=== PATIENT | male | born 1980 | race Hispanic/Latino ===

== ENCOUNTER 2018-05-28 21:12 | Emergency (ER) | payer OTHER, SELFPAY ==
[2018-05-28 21:19] VITALS: BP 130/84; PULSE 67; RESP 15; TEMP 36.9; O2SAT 100; BMI 26.9
--- NOTE | 2018-05-28 21:24 | ED.LOWEXIN ---
HPI - Extremity Injury (Lower) <ERICA LozaP- - Last Filed: 05/28/18 22:51> General Chief Complaint: Extremity Injury, Lower Stated Complaint: Foot injury Time Seen by Provider: 05/28/18 21:15 Source: patient and EMS Mode of arrival: EMS Limitations: no limitations History of Present Illness HPI Narrative: Patient presents with chief complaint of right foot pain. Patient states he has pain on the outside of his right foot after being hit by water thief at work today. He denies any numbness or tingling. He denies any decreased range of motion. However he states that it hurts when he pulls his foot up and when he bears weight. He denies any forefoot pain or ankle pain. He states he has never hurt that foot before. He took 800 mg of ibuprofen prior to arrival. Review of Systems <[facility] - Last Filed: 05/28/18 22:51> Review of Systems GENERAL: Denies chills, fatigue, malaise, fever, sweats. HEENT: Denies sinus pain, ear pain, sore throat, difficulty swallowing, dizziness. RESPIRATORY: Denies dyspnea, cough, wheezing, hemoptysis, sputum. CARDIOVASCULAR: Denies chest pain, palpitations, orthopnea, edema, GASTROINTESTINAL: Denies nausea, vomiting, abdominal pain, diarrhea, constipation, melena. : Denies dysuria, frequency, incontinence, hematuria, urinary retention. MUSCULOSKELETAL: See HPI SKIN: See HPI NEUROLOGIC: Denies weakness, headache, numbness, change in speech, confusion, seizures, incoordination. PSYCHIATRIC: No concerning psychosocial issues. 12 point review of systems is negative except for those stated above Exam <[facility] - Last Filed: 05/28/18 22:51> Narrative Exam Narrative: GENERAL: This is a well-nourished, well-developed patient, in mild distress. HEAD: Atraumatic. Normocephalic. No temporal or scalp tenderness. EYES: Pupils equal round and reactive. Extraocular motions intact. No scleral icterus. No injection or drainage. ENT: Nose without bleeding, purulent drainage or septal hematoma. Throat without erythema, tonsillar hypertrophy or exudate. Uvula midline. Airway patent. NECK: Trachea midline. No JVD or lymphadenopathy. Supple, nontender, no meningeal signs. CARDIOVASCULAR: Regular rate and rhythm without murmurs, gallops, or rubs. RESPIRATORY: Clear to auscultation. Breath sounds equal bilaterally. No wheezes, rales, or rhonchi. GASTROINTESTINAL: Abdomen soft, non-tender, nondistended. No hepato-splenomegaly, or palpable masses. No guarding. EXTREMITIES: Pain to palpation on lateral aspect of right foot. Patient has some palpable swelling in that area. Patient is able to flex and extend foot. Pain upon flexion. Positive pedal pulses right foot. BACK: Nontender without deformity or crepitance. No flank tenderness. NEURO: AOx3. SKIN: No rash or erythema. No ecchymosis right foot. Skin is intact. Initial Vital Signs Initial Vital Signs: Vital Signs Temperature 98.4 F 05/28/18 21:19 Pulse Rate 67 05/28/18 21:19 Respiratory Rate 15 05/28/18 21:19 Blood Pressure 130/84 H 05/28/18 21:19 Pulse Oximetry 100 05/28/18 21:19 <Jose R Ross DO - Last Filed: 05/30/18 02:56> Initial Vital Signs Initial Vital Signs: Vital Signs Temperature 98.4 F 05/28/18 21:19 Pulse Rate 67 05/28/18 21:19 Respiratory Rate 15 05/28/18 21:19 Blood Pressure 130/84 H 05/28/18 21:19 Pulse Oximetry 100 05/28/18 21:19 Course <NIALL Loza-BC - Last Filed: 05/28/18 22:51> Orders Ordered: Discontinued Medications Acetaminophen (Tylenol) 975 mg PO NOW ONE Stop: 05/28/18 22:20 Last Admin: 05/28/18 22:26 Dose: 975 mg Reevaluation(s) Reevaluation #1: Discussed x-ray results with patient. Patient declined pain medication at this time again. Time: 21:55 Reevaluation #2: Discussed with patient follow up if worsening or no improvement. Patient accepted crutches and an Sage wrap for home use. Discussed a few days off of work. Discussed rest ice compression and elevation. Patient was willing to take Tylenol at this time. Patient has no questions or concerns upon discharge. Time: 22:15 Vital Signs - 8 hr 05/28/18 21:19 Temperature 98.4 F Pulse Rate 67 Respiratory Rate 15 Blood Pressure 130/84 H Pulse Oximetry 100 <Jose R Ross DO - Last Filed: 05/30/18 02:56> Orders Ordered: Discontinued Medications Acetaminophen (Tylenol) 975 mg PO NOW ONE Stop: 05/28/18 22:20 Last Admin: 05/28/18 22:26 Dose: 975 mg Vital Signs - 8 hr 05/28/18 21:19 Temperature 98.4 F Pulse Rate 67 Respiratory Rate 15 Blood Pressure 130/84 H Pulse Oximetry 100 MDM - Extremity Injury (Lower) <SHAAN Loza - Last Filed: 05/28/18 22:51> Imaging Data right foot xray: Radiologist's impression: View Report History [address] [address] XRay Report Signed Patient: Jovan Webb MR#: [id number] : 1980 Acct:[id number] Age/Sex: 37 / M Date of Service: 05/28/18 Loc: ED Accession Number: [id number] Procedure: XR foot RT min 3V Ordering Provider: Jadyn Scanlon PROCEDURE: XR FOOT RT MIN 3V INDICATIONS: impact to lateral aspect of foot and pain with weight on it TECHNIQUE: 3 views of the foot were acquired. COMPARISON: None. FINDINGS: Bones: No fractures or dislocations. No suspicious bony lesions. Metatarsus primus varus. Soft tissues: No tibiotalar joint effusion. Achilles tendon appears normal. IMPRESSION: No acute fracture. No osseous lesion. If clinical suspicion and/or symptoms persist, further assessment with repeat plainfilms, or advanced imaging (e.g., CT, MRI, or bone scan) may be helpful for further assessment. Dictated by: Noa Dupree M.D. on 05/28/2018 at 21:52 Approved by: Noa Dupree M.D. on 05/28/2018 at 21:52 [facility] Narrative Medical decision making narrative: Patient presents with right foot pain after being hit by a water hose at work. X-ray was negative for fracture. However patient still has significant pain upon ambulation. The sutures placed in Sage wrap and given crutches. He was treated with Tylenol for pain. I filled out his worker's compensation form. We discussed following up with his primary care for new or worsening symptoms. Discharge Plan Departure Patient Disposition: Home, Self-Care Clinical Impression: Contusion of right foot Discharge Date/Time: 05/28/18 23:00 Interventions: ED Discharge Assessment Last Done: 05/28/18 22:58 Instructions: How to Use Crutches, DI for Contusion, How To Perform RICE (Rest, Ice, Compress, Elevate) Activity Restrictions/Additional Instructions: Your x-ray came back negative for a fracture today. However given her pain, I suggest to take a few days off of work. Please use rest, ice, compression and elevation. Use [id number] medications as needed for pain. Follow up with primary care if new or worsening symptoms. <Jose R Ross DO - Last Filed: 05/30/18 02:56> Cosign ED Attending Akira Attestation: I was immediately available in the department for consultation. Documentation has been reviewed. I agree with assessment and plan.
--- NOTE | 2018-05-28 22:19 | ED_ITS ---
HPI - Extremity Injury (Lower) <ERICA LozaP- - Last Filed: 05/28/18 22:51> General Chief Complaint: Extremity Injury, Lower Stated Complaint: Foot injury Time Seen by Provider: 05/28/18 21:15 Source: patient and EMS Mode of arrival: EMS Limitations: no limitations History of Present Illness HPI Narrative: Patient presents with chief complaint of right foot pain. Patient states he has pain on the outside of his right foot after being hit by water thief at work today. He denies any numbness or tingling. He denies any decreased range of motion. However he states that it hurts when he pulls his foot up and when he bears weight. He denies any forefoot pain or ankle pain. He states he has never hurt that foot before. He took 800 mg of ibuprofen prior to arrival. Review of Systems <[facility] - Last Filed: 05/28/18 22:51> Review of Systems GENERAL: Denies chills, fatigue, malaise, fever, sweats. HEENT: Denies sinus pain, ear pain, sore throat, difficulty swallowing, dizziness. RESPIRATORY: Denies dyspnea, cough, wheezing, hemoptysis, sputum. CARDIOVASCULAR: Denies chest pain, palpitations, orthopnea, edema, GASTROINTESTINAL: Denies nausea, vomiting, abdominal pain, diarrhea, constipation, melena. : Denies dysuria, frequency, incontinence, hematuria, urinary retention. MUSCULOSKELETAL: See HPI SKIN: See HPI NEUROLOGIC: Denies weakness, headache, numbness, change in speech, confusion, seizures, incoordination. PSYCHIATRIC: No concerning psychosocial issues. 12 point review of systems is negative except for those stated above Exam <[facility] - Last Filed: 05/28/18 22:51> Narrative Exam Narrative: GENERAL: This is a well-nourished, well-developed patient, in mild distress. HEAD: Atraumatic. Normocephalic. No temporal or scalp tenderness. EYES: Pupils equal round and reactive. Extraocular motions intact. No scleral icterus. No injection or drainage. ENT: Nose without bleeding, purulent drainage or septal hematoma. Throat without erythema, tonsillar hypertrophy or exudate. Uvula midline. Airway patent. NECK: Trachea midline. No JVD or lymphadenopathy. Supple, nontender, no meningeal signs. CARDIOVASCULAR: Regular rate and rhythm without murmurs, gallops, or rubs. RESPIRATORY: Clear to auscultation. Breath sounds equal bilaterally. No wheezes , rales, or rhonchi. GASTROINTESTINAL: Abdomen soft, non-tender, nondistended. No hepato-splenomegaly , or palpable masses. No guarding. EXTREMITIES: Pain to palpation on lateral aspect of right foot. Patient has some palpable swelling in that area. Patient is able to flex and extend foot. Pain upon flexion. Positive pedal pulses right foot. BACK: Nontender without deformity or crepitance. No flank tenderness. NEURO: AOx3. SKIN: No rash or erythema. No ecchymosis right foot. Skin is intact. Initial Vital Signs Initial Vital Signs: Vital Signs Temperature 98.4 F 05/28/18 21:19 Pulse Rate 67 05/28/18 21:19 Respiratory Rate 15 05/28/18 21:19 Blood Pressure 130/84 H 05/28/18 21:19 Pulse Oximetry 100 05/28/18 21:19 <Jose R Ross DO - Last Filed: 05/30/18 02:56> Initial Vital Signs Initial Vital Signs: Vital Signs Temperature 98.4 F 05/28/18 21:19 Pulse Rate 67 05/28/18 21:19 Respiratory Rate 15 05/28/18 21:19 Blood Pressure 130/84 H 05/28/18 21:19 Pulse Oximetry 100 05/28/18 21:19 Course <NIALL Loza-BC - Last Filed: 05/28/18 22:51> Orders Ordered: Discontinued Medications Acetaminophen (Tylenol) 975 mg PO NOW ONE Stop: 05/28/18 22:20 Last Admin: 05/28/18 22:26 Dose: 975 mg Reevaluation(s) Reevaluation #1: Discussed x-ray results with patient. Patient declined pain medication at this time again. Time: 21:55 Reevaluation #2: Discussed with patient follow up if worsening or no improvement. Patient accepted crutches and an Sage wrap for home use. Discussed a few days off of work. Discussed rest ice compression and elevation. Patient was willing to take Tylenol at this time. Patient has no questions or concerns upon discharge. Time: 22:15 Vital Signs - 8 hr 05/28/18 21:19 Temperature 98.4 F Pulse Rate 67 Respiratory Rate 15 Blood Pressure 130/84 H Pulse Oximetry 100 <Jose R Ross DO - Last Filed: 05/30/18 02:56> Orders Ordered: Discontinued Medications Acetaminophen (Tylenol) 975 mg PO NOW ONE Stop: 05/28/18 22:20 Last Admin: 05/28/18 22:26 Dose: 975 mg Vital Signs - 8 hr 05/28/18 21:19 Temperature 98.4 F Pulse Rate 67 Respiratory Rate 15 Blood Pressure 130/84 H Pulse Oximetry 100 MDM - Extremity Injury (Lower) <SHAAN Loza - Last Filed: 05/28/18 22:51> Imaging Data right foot xray: Radiologist's impression: View Report History [address] [address] XRay Report Signed Patient: Jovan Webb MR#: [id number] : 1980 Acct:[id number] Age/Sex: 37 / M Date of Service: 05/28/18 Loc: ED Accession Number: [id number] Procedure: XR foot RT min 3V Ordering Provider: Jadyn Scanlon PROCEDURE: XR FOOT RT MIN 3V INDICATIONS: impact to lateral aspect of foot and pain with weight on it TECHNIQUE: 3 views of the foot were acquired. COMPARISON: None. FINDINGS: Bones: No fractures or dislocations. No suspicious bony lesions. Metatarsus primus varus. Soft tissues: No tibiotalar joint effusion. Achilles tendon appears normal. IMPRESSION: No acute fracture. No osseous lesion. If clinical suspicion and/or symptoms persist, further assessment with repeat plainfilms, or advanced imaging (e.g., CT, MRI, or bone scan) may be helpful for further assessment. Dictated by: Noa Dupree M.D. on 05/28/2018 at 21:52 Approved by: Noa Dupree M.D. on 05/28/2018 at 21:52 [facility] Narrative Medical decision making narrative: Patient presents with right foot pain after being hit by a water hose at work. X-ray was negative for fracture. However patient still has significant pain upon ambulation. The sutures placed in Sage wrap and given crutches. He was treated with Tylenol for pain. I filled out his worker's compensation form. We discussed following up with his primary care for new or worsening symptoms. Discharge Plan Departure Patient Disposition: Home, Self-Care Clinical Impression: Contusion of right foot Discharge Date/Time: 05/28/18 23:00 Interventions: ED Discharge Assessment Last Done: 05/28/18 22:58 Instructions: How to Use Crutches, DI for Contusion, How To Perform RICE (Rest , Ice, Compress, Elevate) Activity Restrictions/Additional Instructions: Your x-ray came back negative for a fracture today. However given her pain, I suggest to take a few days off of work. Please use rest, ice, compression and elevation. Use [id number] medications as needed for pain. Follow up with primary care if new or worsening symptoms. <Jose R Ross DO - Last Filed: 05/30/18 02:56> Cosign ED Attending Akira Attestation: I was immediately available in the department for consultation. Documentation has been reviewed. I agree with assessment and plan.
[2018-05-28] MEDS: ACETAMINOPHEN 325 MG TABLET 975 MG PO (22:26)
[2018-05-28 22:58] VITALS: BP 120/75; PULSE 86; RESP 15; O2SAT 98
== END 2018-05-28 23:00 | disposition home or self-care (01) ==
PROVIDERS: Emergency Provider Nurse Practitioner Family
DX: S90.31XA Contusion of right foot, initial encounter (principal); W20.8XXA Other cause of strike by thrown, projected or falling object, initial encounter; Y99.0 Civilian activity done for income or pay
CPT/HCPCS: 73630; 99282; 99283